=== PATIENT | male | born 1970 | race Caucasian/White ===

== ENCOUNTER 2017-09-17 08:26 | Day surgery (SDC) | payer BC ==
[2017-09-11 15:26] VITALS: BMI 28.7
[2017-09-17 08:47] VITALS: TEMP 97.6
[2017-09-17] MEDS ORDERED: PROPOFOL 20 ML ONE ×2 (09:22)
[2017-09-17 10:10] VITALS: BP 122/72; PULSE 76
--- NOTE | 2017-09-18 16:11 | PATH ---
Surgical Pathology Report Patient Name: JOEY BRITTON [facility]. Rec. #: [id number] /Age/Gender: 1970 (Age: 46) / M Account: [id number] Location: [facility] AM[facility]UL[facility] Taken: 09/17/2017 Received: 09/17/2017 Reported: 09/18/2017 Physicians: Saud Voss M.D. Specimen(s) Received RECTUM Clinical History Family history of colon cancer Postoperative diagnosis: Polyp Final Diagnosis RECTUM, BIOPSY: POLYPOID FRAGMENT OF COLONIC MUCOSA WITH NO DIAGNOSTIC ABNORMALITIES. Electronically Signed Kaelyn Hernandez M.D. Gross Description Received in formalin, labeled "rectum" is a chand, irregular portion of soft tissue measuring 0.3 cm. in greatest dimension. The specimen is submitted in toto in one cassette. 09/17/201709/17/2017
== END 2017-09-17 10:15 | disposition home or self-care (01) ==
LOC: FASU-ENDO 08:26
PROVIDERS: ATTEND Internal Medicine Gastroenterology
PROC: 0DBP8ZX Excision of Rectum, Via Natural or Artificial Opening Endoscopic, Diagnostic (ICD-10-PCS; principal; 2017-09-17 09:19)
DX: Z12.11 Encounter for screening for malignant neoplasm of colon (principal); Z80.0 Family history of malignant neoplasm of digestive organs; K62.1 Rectal polyp
CPT/HCPCS: 88305-TC

== ENCOUNTER 2021-11-13 07:23 | Day surgery (SDC) | payer OTHER ==
[2021-11-13] MEDS ORDERED: LIDOCAINE HCL/PF 2% SDV 5ML VIAL ONE (07:40)
[2021-11-13] MEDS ORDERED: PROPOFOL 20 ML ONE ×4 (07:40)
[2021-11-13 07:41] VITALS: BMI 26.5
[2021-11-13 09:14] VITALS: TEMP 97.7
[2021-11-13 09:25] VITALS: BP 112/76; PULSE 76
== END 2021-11-13 10:25 | disposition home or self-care (01) ==
LOC: FASU-ENDO 07:23
PROVIDERS: ATTEND Internal Medicine Gastroenterology
PROC: 0DB98ZX Excision of Duodenum, Via Natural or Artificial Opening Endoscopic, Diagnostic (ICD-10-PCS; 2021-11-13)
PROC: 0DB68ZX Excision of Stomach, Via Natural or Artificial Opening Endoscopic, Diagnostic (ICD-10-PCS; 2021-11-13)
PROC: 0DJD8ZZ Inspection of Lower Intestinal Tract, Via Natural or Artificial Opening Endoscopic (ICD-10-PCS; principal; 2021-11-13 08:28)
DX: Z12.11 Encounter for screening for malignant neoplasm of colon (principal); Z80.0 Family history of malignant neoplasm of digestive organs; K29.50 Unspecified chronic gastritis without bleeding; K64.0 First degree hemorrhoids; R12 Heartburn
CPT/HCPCS: 88305-TC; 88342-TC